=== PATIENT | male | born 1960 | race Caucasian/White ===

== ENCOUNTER 2018-10-23 09:44 | Emergency (ER) | payer MEDICAID ==
[~2018-10-23] VITALS: Ht 180.3 cm; Wt 88.0 kg
[2018-10-23] MEDS ORDERED: normal saline 1000ML IV soln IVB ONE (10:15)
[2018-10-23] MEDS ORDERED: proCHLORperazine 10 MG/2 ml inj IV ONE (10:15)
[2018-10-23 10:42] LABS: BASOPHILS # (AUTO) 0.1 X10'3 (0-0.2); BASOPHILS % (AUTO) 1.3 % (0-1); EOSINOPHILS # (AUTO) 0.1 X10'3 (0-0.9); EOSINOPHILS % (AUTO) 2.2 % (0-6); HEMATOCRIT 34.5 % (42.0-52.0); HEMOGLOBIN 11.5 g/dl (14.0-17.9); LYMPHOCYTES # (AUTO) 1.3 X10'3 (1.1-4.8); LYMPHOCYTES % (AUTO) 20.7 % (21-51); MEAN CORPUSCULAR HEMOGLOBIN 33.3 PG (27.0-31.0); MEAN CORPUSCULAR HGB CONC 33.4 g/dL (33.0-36.5); MEAN CORPUSCULAR VOLUME 99.7 FL (78-98); MEAN PLATELET VOLUME 7.7 FL (7.4-10.4); MONOCYTES # (AUTO) 0.8 X10'3 (0-0.9); MONOCYTES % (AUTO) 12.8 % (2-12); NEUTROPHILS # (AUTO) 3.9 X10'3 (1.8-7.7); PLATELET COUNT 130 X10'3 (140-440); RED BLOOD COUNT 3.46 X10'6 (4.70-6.10); RED CELL DISTRIBUTION WIDTH 17.8 % (11.5-14.5); WHITE BLOOD COUNT 6.2 X10'3 (4.5-11.0)
--- NOTE | 2018-10-23 11:41 | NUR ---
PARACENTESIS 3800 ML CLOUDY YELLOW FLUID REMOVED; SAMPLE SENT TO LAB FOR CYTOLOGY
[2018-10-23] MEDS ORDERED: albumin (human) 25% 100 ML IV solution IV ONE (12:00)
[2018-10-23 12:53] VITALS: BP 127/69
== END 2018-10-23 13:01 | disposition home or self-care (01) ==
LOC: ER 09:47
DX: K70.31 Alcoholic cirrhosis of liver with ascites (principal); Z86.19 Personal history of other infectious and parasitic diseases; Z59.0 Homelessness
CPT/HCPCS: 36415; 49083; 82140; 85025; 96365; 99285; J0780; P9047

== ENCOUNTER 2018-11-06 13:56 | Emergency (ER) | payer MEDICAID ==
[~2018-11-06] VITALS: Ht 180.3 cm; Wt 90.9 kg
[~2018-11-06 13:56] MED LIST: FURO40TA4 PO; IRON PO; LACT10SO32 PO; POTA20TA19 PO; PROP10TA10 PO; SPIR25TA5 PO
[2018-11-06 15:12] LABS: BASOPHILS # (AUTO) 0.1 X10'3 (0-0.2); EOSINOPHILS # (AUTO) 0.1 X10'3 (0-0.9); MEAN CORPUSCULAR VOLUME 98.6 FL (78-98); MONOCYTES # (AUTO) 0.7 X10'3 (0-0.9); NEUTROPHILS # (AUTO) 3.2 X10'3 (1.8-7.7); PLATELET COUNT 112 X10'3 (140-440); WHITE BLOOD COUNT 5.7 X10'3 (4.5-11.0)
[2018-11-06 15:18] LABS: HEMOGLOBIN 11.3 g/dl (14.0-17.9); RED BLOOD COUNT 3.34 X10'6 (4.70-6.10)
[2018-11-06 15:19] LABS: BASOPHILS % (AUTO) 1.4 % (0-1); LYMPHOCYTES # (AUTO) 1.6 X10'3 (1.1-4.8); LYMPHOCYTES % (AUTO) 28.7 % (21-51); MEAN CORPUSCULAR HEMOGLOBIN 33.7 PG (27.0-31.0); MEAN CORPUSCULAR HGB CONC 34.2 g/dL (33.0-36.5); MEAN PLATELET VOLUME 7.8 FL (7.4-10.4); MONOCYTES % (AUTO) 12.2 % (2-12); NEUTROPHILS % (AUTO) 55.7 % (42-75); RED CELL DISTRIBUTION WIDTH 17.8 % (11.5-14.5)
[2018-11-06 15:26] LABS: ALANINE AMINOTRANSFERASE 73 U/L (12-78); ALBUMIN 1.9 G/DL (3.4-5.0); ALKALINE PHOSPHATASE 205 IU/L (46-116); ANION GAP 5 (8-16); ASPARTATE AMINO TRANSFERASE 84 U/L (10-37); BILIRUBIN,TOTAL 4.2 MG/DL (0.1-1.0); BLOOD UREA NITROGEN 26 MG/DL (7-18); BUN/CREATININE RATIO 21.3 (5.4-32.0); CALCIUM 8.3 MG/DL (8.5-10.1); CHLORIDE 98 MMOL/L (99-107); CREATININE 1.22 MG/DL (0.60-1.10); GLUCOSE 96 MG/DL (70-104); LIPASE 445 U/L (73-393); SODIUM 126 MMOL/L (135-145); TOTAL CARBON DIOXIDE 22.8 MMOL/L (24-32); eGFR 61 ML/MIN
[2018-11-06 15:44] LABS: ALBUMIN/GLOBULIN RATIO 0.4 (1.1-1.5); TOTAL PROTEIN 7.1 G/DL (6.4-8.2)
[2018-11-06 15:53] LABS: PLATELET ESTIMATE DECREASED
[2018-11-06 15:54] LABS: POLYCHROMASIA FEW
[2018-11-06 15:55] LABS: ANISOCYTOSIS 1+; BURR CELLS 1+; POIKILOCYTOSIS 2+; ROULEAUX 2+; TARGET CELLS 1+
[2018-11-06] MEDS ORDERED: LIDOcaine 1% w/epiNEPHrine 1:200,000 30ml vial IM ONE (16:10)
[2018-11-06 18:07] LABS: CLARITY,URINE CLEAR (Clear); COLOR,URINE YELLOW (Yellow); GLUCOSE, URINE NEGATIVE (Neg); KETONES,URINE NEGATIVE (Neg); LEUKOCYTE ESTERASE ,URINE NEGATIVE (Neg); NITRITES, URINE NEGATIVE (Neg); OCCULT BLOOD,URINE NEGATIVE (Neg); PH,URINE 5.5 (4.8-8.0); PROTEIN,URINE NEGATIVE (Neg)
[2018-11-06 18:08] LABS: UA COLLECTION TYPE NON-SPECIFIED
[2018-11-06 19:35] VITALS: BP 101/60
--- NOTE | 2018-11-06 19:58 | NUR ---
offered pt help getting dressed and pt refused help. he stated that he could do it himself. asked a couple times but pt denied help every time
--- NOTE | 2018-11-06 20:25 | NUR ---
PARENTS ARE IN WAITING ROOM AND WILL BE BROUGHT BACK - PT HAS BEEN MEDICATED.
== END 2018-11-06 23:32 | disposition home or self-care (01) ==
LOC: ER 13:56
DX: R18.8 Other ascites (principal); E87.1 Hypo-osmolality and hyponatremia; Z86.19 Personal history of other infectious and parasitic diseases; Z79.899 Other long term (current) drug therapy
CPT/HCPCS: 36415; 49083; 80053; 81003; 82140; 83690; 85025; 85610; 99285; J3490